=== PATIENT | female | born 2005 | race Hispanic/Latino ===

== ENCOUNTER → 2023-08-21 | Outpatient (CLI) | payer OTHER | LOC: M PLAIMG 14:03 | PROVIDERS: ATTEND Physician Assistant | DX: M22.2X9 Patellofemoral disorders, unspecified knee (principal); M25.561 Pain in right knee ==

== ENCOUNTER → 2024-03-28 | Outpatient (REF) ==
[~2024-03-28] MED LIST: FERR1TAB8 PO; SERT50TA29 PO
== END ==
LOC: M PLAIMG 10:59
PROVIDERS: ATTEND Nurse Practitioner Family
DX: M25.531 Pain in right wrist (principal); M79.674 Pain in right toe(s)